=== PATIENT | female | born 1995 | race Caucasian/White ===

== ENCOUNTER 2020-05-22 14:53 | Emergency (ER) | payer OTHER, SELFPAY ==
[2020-05-22 15:44] VITALS: BP 121/82; PULSE 74; RESP 16; TEMP 36.9; O2SAT 98; BMI 30.1
[2020-05-22 16:16] LABS: Basophils % 0.5 %; Eosinophils # 0.1 10^3/uL (0.0-0.8); Eosinophils % 0.9 %; Hemoglobin 14.3 g/dL (11.5-15.3); Lymphocytes # 1.8 10^3/uL (0.8-4.8); Lymphocytes % 23.7 %; Mean Corpuscular HGB Conc 32.5 g/dL (30.0-36.0); Mean Corpuscular Hemoglobin 30.2 pg (28.0-34.0); Mean Corpuscular Volume 92.8 fL (81-99); Mean Platelet Volume 9.8 fL (7.4-10.4); Monocytes # 0.3 10^3/uL (0.2-0.9); Monocytes % 4.6 %; Neutrophils # 5.17 10^3/uL (1.8-7.7); Nucleated Red Blood Cells % 0 %; Platelet Count 302 10^3/cmm (130-400); Red Blood Count 4.74 10^6/uL (4.1-5.3); Red Cell Distribution Width 12.6 % (12.1-15.1); White Blood Count 7.4 10^3/uL (4.0-10.0)
--- NOTE | 2020-05-22 16:26 | USR_ITS ---
PROCEDURE INFORMATION: Exam: US Abdomen, Limited; Right Upper Quadrant Exam date and time: 05/22/2020 4:33 PM Age: 24 years old Clinical indication: Abdominal pain; Acute; Patient HX: 2 weeks post ; Additional info: Pain, n/v TECHNIQUE: Imaging protocol: US abdomen. Real time ultrasound with image documentation. Limited exam focused on the right upper quadrant. COMPARISON: No relevant prior studies available. FINDINGS: Liver: Normal. No masses. Gallbladder: Enlarged hydropic gallbladder. Gallbladder measures approximately 10 cm in length. No few small gallstones within the gallbladder pherigian cap. No visible gallbladder wall thickening or pericholecystic fluid. Common bile duct: Normal. No stones. No dilation. Common bile duct maximum diameter 7 mm. Pancreas: Visualized pancreas is unremarkable. Right kidney: Normal. No mass. No hydronephrosis. Right renal dimensions 11 cm x 4.8 cm x 5 cm. Aorta: The abdominal aorta were visualized is nonaneurysmal. Portal venous: Antegrade portal venous flow. Inferior vena cava: Patent inferior vena cava. US/US gall bladder [id number] IMPRESSION: Hydropic enlarged gallbladder containing a few small gallstones.
[2020-05-22 16:35] LABS: HCG, Serum Qual Negative (Negative)
[2020-05-22 16:38] LABS: Alanine Aminotransferase 153 U/L (0-33); Albumin Level 4.3 g/dL (3.5-5.2); Alkaline Phosphatase 537 IU/L (35-105); Anion Gap 17.1 (5-19); Aspartate Amino Transferase 88 U/L (0-32); Blood Urea Nitrogen 12 mg/dL (6-20); Calcium 9.6 mg/dL (8.5-10.5); Carbon Dioxide 23 mmol/L (22-29); Chloride 105 mmol/L (98-107); Globulin 3.4 g/dL (1.3-4.6); Glomerular Filtration Rate 76.9 mL/min (90-130); Glucose 81 mg/dL (65-115); Lipase 40 U/L (13-60); Osmolality Calculated 287 mOsm/kg (285-295); Potassium 4.1 mmol/L (3.5-5.1); Sodium 141 mmol/L (136-145); Total Bilirubin 1.3 mg/dL (0.15-1.2); Total Protein 7.7 g/dL (6.6-8.7)
[2020-05-22 17:17] VITALS: RESP 18; O2SAT 98
[2020-05-22] MEDS: morphine 4 mg/mL SDV 1 mL IVP ×2 (17:17→19:30)
[2020-05-22] MEDS: ondansetron 2 mg/ML SDV 2 mL 4 MG IVP (17:19)
--- NOTE | 2020-05-22 17:20 | MRR_ITS ---
PROCEDURE INFORMATION: Exam: MR Abdomen Without Contrast Exam date and time: 05/22/2020 5:21 PM Age: 24 years old Clinical indication: Abdominal pain; Other: Gall bladder pain; Additional info: Ruq pain, concern for cbd stone TECHNIQUE: Imaging protocol: MR of the abdomen without contrast. COMPARISON: US gall bladder [id number] 05/22/2020 4:44 PM FINDINGS: Liver: The liver is normal. Gallbladder and bile ducts: MRCP demonstrates the common bile duct to be mildly dilated, 8 mm. There is a filling defect measuring 3 mm within the distal common bile duct consistent with choledochal calculus. Pancreas: The pancreas is normal. Pancreatic duct is normal. Spleen: The spleen is normal. Adrenals: The adrenals are normal. Kidneys and ureters: The kidneys are normal.No hydronephrosis. Stomach and bowel: Unremarkable Intraperitoneal space: No free fluid. Arteries: No abdominal aortic aneurysm. Bladder: The bladder is moderately distended. There is a Phrygian cap which contains multiple small gallstones. No wall thickening. No pericholecystic fluid. Bones/joints: Unremarkable. Soft tissues: Unremarkable. MR/MR MRCP [id number] IMPRESSION: 1. Cholelithiasis. 2. The common bile duct is mildly dilated, 8 mm. Within the distal common bile duct there is a 3 mm choledochal calculus.
--- NOTE | 2020-05-22 17:21 | ED_ITS ---
HPI - Abdominal Pain General: Chief Complaint: Abdominal Pain Stated Complaint: ABD pain/ known gall stones Time Seen by Provider: 05/22/20 16:41 History of Present Illness: HPI narrative: This patient is a 24-year-old female who presents with right upper quadrant pain. She presents after having had symptoms for several months. She delivered a baby 2 weeks ago and has had worsening symptoms since then. 24 hours ago she started having severe right upper quadrant pain that has not resolved. She is not able to tolerate food or fluid including water. She denies fever. She had an ultrasound several months ago that showed stones in the gallbladder. Her doctor was trying to delay treatment of those until after her delivery. She is breast-feeding. She is otherwise healthy. MD elicited complaint: abdominal pain Pertinent past history: none Onset (ago): month(s) (Has been going on for a few months intermittently but constant since 6 PM last night) Location: Epigastric and RUQ Severity: moderate Radiation: none Exacerbating factors: eating and movement Relieving factors: nothing Associated Symptoms: Reports anorexia, chills, nausea and vomiting Review of Systems General: Reports: 10 or more systems reviewed and unremarkable except in HPI and below Narrative: Breast-feeding, 2 weeks Const: Reports: chills Eyes: Denies: change in vision ENMT: Denies: odynophagia Card: Denies: chest pain or swelling of feet/ankles Resp: Denies: dyspnea, productive cough or non-productive cough GI: Reports: abdominal pain, nausea and vomiting : Denies: flank pain or difficulty voiding Musc: Denies: neck pain or back pain Skin/Breast: Denies: rash Neuro: Denies: headache(s), numbness in extremities or weakness in extremities Lee/Lymph: Denies: easy bruising or easy bleeding PFS ED PFSH: Social History Smoking and tobacco status: never smoked Alcohol intake: never Substance/Drug Use: never Physical Exam Const: COMMON NORMALS: no acute distress, patient oriented x3, no limitations and alert GENERAL APPEARANCE: cooperative and comfortable HENMT: HEAD & SCALP: normal to inspection FACE & SINUS: normal facial exam Eye: GENERAL EYE: appearance normal, both eyes and all related structures Neck/C-Spine: COMMON NORMALS: supple, no meningeal signs and no JVD Chest: COMMONS NORMALS: normal inspection of the chest Resp: COMMON NORMALS: normal respiratory effort, No use of accessory muscles and clear to auscultation bilaterally AUSCULTATION: clear to auscultation bilaterally Cardio: COMMON NORMALS: no JVD, regular rate, regular rhythm and No murmurs present (Cardio) RATE: regular rate RHYTHM: regular rhythm GI: PALPATION: Yes Tenderness to palpation present (GI) (Severe) Details: RUQ and other (Epigastric) Back/Pelvis: COMMON NORMALS: thoracic and lumbar spine normal to inspection Extremity: COMMON NORMALS: normal to inspection Neuro: COMMON NORMALS: patient oriented x3, moves all extremities, no focal motor deficits and no sensory deficits noted SENSORIUM/ORIENTATION: Yes alert MENINGEAL SIGNS: Yes no meningeal signs Psych: COMMON NORMALS: mental status grossly normal, cooperative and normal affect Skin: COMMON NORMALS: no rashes or lesions noted and turgor normal GENERAL SKIN EXAM: no rashes or lesions noted and turgor normal Course ED course: Ultrasound with gallstones. No wall thickening or pericholecystic fluid. Elevated alk phos and slightly elevated total bilirubin. Concerning for possible common bile duct stone. Discussed with Dr. Sandoval. Recommended MRCP which did show a 3 mm common bile duct stone. Attempting to arrange for transfer to [facility] for ERCP. patient was accepted by the nurse practitioner for Dr. Cinthia Gabriel. We are awaiting a room assignment and transportation. Vital Signs: Vital signs: Vital Signs Temperature 98.4 F 05/22/20 15:44 Pulse Rate 82 05/22/20 23:20 Respiratory Rate 18 05/22/20 23:20 Blood Pressure 121/76 05/22/20 23:20 Pulse Oximetry 98 05/22/20 23:20 MDM - Abdominal Pain MDM Narrative: Medical decision making narrative: Cholelithiasis, cholecystitis, choledocholithiasis. Lab Data: Labs: Lab Results 05/22/20 05/22/20 05/22/20 Range/Units 16:10 16:10 16:10 WBC 7.4 (4.0-10.0) 10^3/ uL RBC 4.74 (4.1-5.3) 10^6/u L Hgb 14.3 (11.5-15.3) g/dL Hct 44.0 (37.0-47.0) % MCV 92.8 (81-99) fL MCH 30.2 (28.0-34.0) pg MCHC 32.5 (30.0-36.0) g/dL RDW 12.6 (12.1-15.1) % Plt Count 302 (130-400) 10^3/c mm MPV 9.8 (7.4-10.4) fL Neut % (Auto) 70.0 % Lymph % (Auto) 23.7 % [place] % (Auto) 4.6 % Eos % (Auto) 0.9 % Baso % (Auto) 0.5 % Neut # (Auto) 5.17 (1.8-7.7) 10^3/u L Lymph # (Auto) 1.8 (0.8-4.8) 10^3/u L [place] # (Auto) 0.3 (0.2-0.9) 10^3/u L Eos # (Auto) 0.1 (0.0-0.8) 10^3/u L Baso # (Auto) 0.0 (0.0-0.1) 10^3/u L Nucleated RBC % (a uto) 0 % Nucleated RBCs # 0.0 /100WBC Sodium 141 (136-145) mmol/L Potassium 4.1 (3.5-5.1) mmol/L Chloride 105 (98-107) mmol/L Carbon Dioxide 23 (22-29) mmol/L Anion Gap 17.1 (5-19) BUN 12 (6-20) mg/dL Creatinine 0.9 (0.5-0.9) mg/dL GFR Calculation 76.9 L (90-130) mL/min Glucose 81 (65-115) mg/dL Calculated Osmolal ity 287 (285-295) mOsm/k g Lactic Acid (0.5-2.2) mmol/L Calcium 9.6 (8.5-10.5) mg/dL Total Bilirubin 1.3 H (0.15-1.2) mg/dL AST 88 H (0-32) U/L ALT 153 H (0-33) U/L Alkaline Phosphata se 537 H (35-105) IU/L Total Protein 7.7 (6.6-8.7) g/dL Albumin 4.3 (3.5-5.2) g/dL Globulin 3.4 (1.3-4.6) g/dL Lipase 40 (13-60) U/L HCG, Qual Negative (Negative) Urine Color (Yellow) Urine Appearance (CLEAR) Urine pH (5-7) Ur Specific Gravit y (1.005-1.030) Urine Protein (Negative) Urine Glucose (UA) (Normal) Urine Ketones (Negative) Urine Blood (Negative) Urine Nitrate (Negative) Urine Bilirubin (NEGATIVE) Urine Urobilinogen (Negative) mg/dL Ur Leukocyte Jocelyne ase (Negative) Urine RBC (0-2) /hpf Urine WBC (0-5) /hpf Ur Squamous Epith Cells (0-5) Amorphous Sediment Urine Bacteria (NONE) Urine Mucus 05/22/20 05/22/20 Range/Units 17:27 17:30 WBC (4.0-10.0) 10^3/ uL RBC (4.1-5.3) 10^6/u L Hgb (11.5-15.3) g/dL Hct (37.0-47.0) % MCV (81-99) fL MCH (28.0-34.0) pg MCHC (30.0-36.0) g/dL RDW (12.1-15.1) % Plt Count (130-400) 10^3/c mm MPV (7.4-10.4) fL Neut % (Auto) % Lymph % (Auto) % [place] % (Auto) % Eos % (Auto) % Baso % (Auto) % Neut # (Auto) (1.8-7.7) 10^3/u L Lymph # (Auto) (0.8-4.8) 10^3/u L [place] # (Auto) (0.2-0.9) 10^3/u L Eos # (Auto) (0.0-0.8) 10^3/u L Baso # (Auto) (0.0-0.1) 10^3/u L Nucleated RBC % (a uto) % Nucleated RBCs # /100WBC Sodium (136-145) mmol/L Potassium (3.5-5.1) mmol/L Chloride (98-107) mmol/L Carbon Dioxide (22-29) mmol/L Anion Gap (5-19) BUN (6-20) mg/dL Creatinine (0.5-0.9) mg/dL GFR Calculation (90-130) mL/min Glucose (65-115) mg/dL Calculated Osmolal ity (285-295) mOsm/k g Lactic Acid 1.0 (0.5-2.2) mmol/L Calcium (8.5-10.5) mg/dL Total Bilirubin (0.15-1.2) mg/dL AST (0-32) U/L ALT (0-33) U/L Alkaline Phosphata se (35-105) IU/L Total Protein (6.6-8.7) g/dL Albumin (3.5-5.2) g/dL Globulin (1.3-4.6) g/dL Lipase (13-60) U/L HCG, Qual (Negative) Urine Color Dark yellow (Yellow) Urine Appearance Clear (CLEAR) Urine pH 5 (5-7) Ur Specific Gravit y 1.025 (1.005-1.030) Urine Protein Neg (Negative) Urine Glucose (UA) Norm (Normal) Urine Ketones 2+ H (Negative) Urine Blood 2+ H (Negative) Urine Nitrate Negative (Negative) Urine Bilirubin 1+ H (NEGATIVE) Urine Urobilinogen 1 H (Negative) mg/dL Ur Leukocyte Jocelyne ase Trace H (Negative) Urine RBC 0-4 H (0-2) /hpf Urine WBC 5-10 H (0-5) /hpf Ur Squamous Epith Cells 0-4 H (0-5) Amorphous Sediment Not Reportable Urine Bacteria 1+ H (NONE) Urine Mucus 3+ Discharge Plan Discharge Patient Disposition: Xfer Short-Term Hosp Clinical Impression: Choledocholithiasis Condition: Stable Referrals: Ro Lara, [facility] [Primary Care Provider] - Coding Level of Care Code ED Rustic Terrazzo Setter for Chg Fwd Exam Comprehensive
[2020-05-22] MEDS: sodium chloride 0.9% 1,000 ML 999 ML IV ×2 (18:20→18:22)
[2020-05-22 18:41] LABS: Add Urine Microscopic? YES; Bilirubin Urine 1+ (NEGATIVE); Blood Urine 2+ (Negative); Glucose Urine UA Norm (Normal); Ketones Urine 2+ (Negative); Leukocyte Esterase Urine Trace (Negative); Nitrate Urine Negative (Negative); Protein Urine Neg (Negative); Specific Gravity, Urine 1.025 (1.005-1.030); Urine Appearance Clear (CLEAR); Urine Color Dark Yellow (Yellow); Urobilinogen Urine 1 mg/dL (Negative); pH Urine 5 (5-7)
[2020-05-22 18:42] LABS: Bacteria Urine 1+; Mucus Urine 3+; RBC Urine 0-4 /hpf (0-2); Squamous Epithelial Cell Urine 0-4 (0-5)
[2020-05-22 18:43] LABS: Add Urine Culture? Yes
[2020-05-22 19:30] VITALS: RESP 17; O2SAT 98
[2020-05-22 23:20] VITALS: BP 121/76; PULSE 82; RESP 18; O2SAT 98
== END 2020-05-23 00:46 | disposition short-term general hospital (02) ==
PROVIDERS: Physician Assistant; Emergency Provider Emergency Medicine; PCP Nurse Practitioner Family
DX: K80.50 Calculus of bile duct without cholangitis or cholecystitis without obstruction (principal)
CPT/HCPCS: 12345; 36415; 74181; 76705; 80053; 81001; 83605; 83690; 84703; 85025; 87040; 87077; 87086; 87186; 96361; 96374; 96375; 99282; 99283; J2270; J2405; J7030

== ENCOUNTER 2020-05-27 22:32 | Emergency (ER) | payer OTHER, SELFPAY ==
[2020-05-27 22:47] VITALS: BP 107/74; PULSE 80; RESP 28; TEMP 36.5; O2SAT 99; BMI 30.1
--- NOTE | 2020-05-27 22:57 | CTR_ITS ---
PROCEDURE INFORMATION: Exam: CT Abdomen And Pelvis With Contrast Exam date and time: 05/27/2020 11:18 PM Age: 24 years old Clinical indication: Abdominal pain; Generalized; Prior surgery; Surgery date: 3-7 days post-operative; Surgery type: Cholecystectomy; Patient HX: 3 weeks post ; Additional info: Abd pain TECHNIQUE: Imaging protocol: Computed tomography of the abdomen and pelvis with intravenous contrast. Radiation optimization: All CT scans at this facility use at least one of these dose optimization techniques: automated exposure control; mA and/or kV adjustment per patient size (includes targeted exams where dose is matched to clinical indication); or iterative reconstruction. Contrast material: OMNI 300; Contrast volume: 95 ml; Contrast route: INTRAVENOUS (IV); COMPARISON: MR MRCP [id number] 05/22/2020 6:23 PM RADIATION DOSE METRICS: Total DLP (mGy-cm): 828.87 FINDINGS: Liver: Normal. No mass. Gallbladder and bile ducts: 4.7 x 1.1 cm air-containing fluid collection in the gallbladder fossa without ring-enhancement. Cholecystectomy. Biliary stent. No biliary ductal dilatation. Pancreas: Normal. No ductal dilation. Spleen: No splenomegaly. Adrenals: Normal. No mass. Kidneys and ureters: Normal. No hydronephrosis. Stomach and bowel: No obstruction. No wall thickening. Appendix: Normal appendix. Intraperitoneal space: 6.5 x 3.1 cm loculated fluid collection without ring enhancement in the cul-de-sac. Vasculature: No abdominal aortic aneurysm. Lymph nodes: No enlarged lymph nodes. Bladder: Unremarkable as visualized. Reproductive: Unremarkable as visualized. Bones/joints: Unremarkable. No acute fracture. Soft tissues: Minimal subcutaneous emphysema at the umbilicus with mild fat stranding, compatible with recent surgery. CT/CT abdomen pelvis w con* [id number] IMPRESSION: 1. 4.7 x 1.1 cm air-containing fluid collection in the gallbladder fossa without ring-enhancement. Developing abscess is possible. 2. 6.5 x 3.1 cm loculated fluid collection without ring enhancement in the cul-de-sac. Developing abscess is possible. Radiation Dose CTDIVOL = (mGy): DLP = 828.87 (mGy-cm)
--- NOTE | 2020-05-27 23:06 | ED_ITS ---
HPI - Abdominal Pain General: Chief Complaint: Abdominal Pain Stated Complaint: severe abd pain and vomiting post surg 05/23 Time Seen by Provider: 05/27/20 22:57 Source: patient Mode of arrival: ambulatory Limitations: no limitations History of Present Illness: HPI narrative: 24-year-old female who had an ERCP along with cholecystectomy last Tuesday. She also had a stent placed in her common bile duct. Patient was discharged Tuesday and states she has been doing well started having diffuse abdominal pain today that radiates to her back. States pain is sharp in nature and rates it a 5 out of 10. She denies any worsening or improving factors. She denies any fevers. MD elicited complaint: abdominal pain Associated Symptoms: Denies chills, dysuria and fever(s) Review of Systems Const: Denies: fever(s), chills, body aches or change in appetite Eyes: Denies: blurry vision or eye discomfort ENMT: Denies: throat pain or dental pain Card: Denies: chest pain Resp: Denies: dyspnea GI: Reports: abdominal pain : Denies: dysuria Musc: Denies: neck pain or back pain Skin/Breast: Denies: rash Neuro: Denies: headache(s) Psych: Denies: depression Lee/Lymph: Denies: easy bruising All/Imm: Denies: urticaria PFSH ED PFSH: Social History Smoking and tobacco status: never smoked Alcohol intake: never Physical Exam Const: COMMON NORMALS: no acute distress, patient oriented x3 and healthy appearing HENMT: COMMON NORMALS: normocephalic and atraumatic HEAD & SCALP: normocephalic and atraumatic Eye: COMMON NORMALS: Equal, round and reactive pupils present and EOMs intact bilaterally PUPIL: Yes Equal, round and reactive pupils present Neck/C-Spine: COMMON NORMALS: full ROM and supple Chest: COMMONS NORMALS: normal inspection of the chest and normal palpation of entire chest wall Resp: COMMON NORMALS: normal respiratory effort, No retractions, No use of accessory muscles and clear to auscultation bilaterally AUSCULTATION: clear to auscultation bilaterally Cardio: COMMON NORMALS: regular rate, regular rhythm and No murmurs present (Cardio) RATE: regular rate RHYTHM: regular rhythm GI: COMMON NORMALS: Normal to inspection, nondistended, normoactive bowel sounds present, Soft to palpation and no masses PALPATION: Yes Soft to palpation OTHER: Incisions are clean dry and intact. Diffuse tenderness Extremity: COMMON NORMALS: normal to inspection and full ROM Neuro: COMMON NORMALS: patient oriented x3, moves all extremities and no focal motor deficits Psych: COMMON NORMALS: mental status grossly normal, Normal thought process present and cooperative THOUGHT PROCESS: Normal thought process present Skin: COMMON NORMALS: no rashes or lesions noted and no wounds GENERAL SKIN EXAM: no rashes or lesions noted Course Vital Signs: Vital signs: Vital Signs Temperature 97.7 F 05/27/20 22:47 Pulse Rate 74 05/28/20 01:59 Respiratory Rate 18 05/28/20 01:59 Blood Pressure 107/72 05/28/20 01:59 Pulse Oximetry 98 05/28/20 01:59 MDM - Abdominal Pain MDM Narrative: Medical decision making narrative: Patient presents here with a bdominal pain. Patient is afebrile and white count is normal. Her pain is since resolved and abdominal exam here is benign. I spoke to surgeon on-call at [facility]. I went over CT scan with him. He states that her white count is normal and she is afebrile he had like her to see Dr. Sloan her surgeon today in clinic. We will start her on Augmentin. Patient is to call her surgeon to see him today. She is to return to the ER if worsening. She understands and agrees to this plan. Lab Data: Labs: Lab Results 05/27/20 05/27/20 05/27/20 Range/Units 23:11 23:11 23:11 WBC 5.8 (4.0-10.0) 10^3/ uL RBC 4.39 (4.1-5.3) 10^6/u L Hgb 13.3 (11.5-15.3) g/dL Hct 39.3 (37.0-47.0) % MCV 89.5 (81-99) fL MCH 30.3 (28.0-34.0) pg MCHC 33.8 (30.0-36.0) g/dL RDW 12.1 (12.1-15.1) % Plt Count 265 (130-400) 10^3/c mm MPV 10.1 (7.4-10.4) fL Neut % (Auto) 55.4 % Lymph % (Auto) 33.6 % [place] % (Auto) 7.5 % Eos % (Auto) 2.7 % Baso % (Auto) 0.5 % Neut # (Auto) 3.22 (1.8-7.7) 10^3/u L Lymph # (Auto) 2.0 (0.8-4.8) 10^3/u L [place] # (Auto) 0.4 (0.2-0.9) 10^3/u L Eos # (Auto) 0.2 (0.0-0.8) 10^3/u L Baso # (Auto) 0.0 (0.0-0.1) 10^3/u L Nucleated RBC % (a uto) 0 % Nucleated RBCs # 0.0 /100WBC Sodium 138 (136-145) mmol/L Potassium 3.7 (3.5-5.1) mmol/L Chloride 104 (98-107) mmol/L Carbon Dioxide 20 L (22-29) mmol/L Anion Gap 17.7 (5-19) BUN 12 (6-20) mg/dL Creatinine 0.7 (0.5-0.9) mg/dL GFR Calculation 102.8 (90-130) mL/min Glucose 94 (65-115) mg/dL Calculated Osmolal ity 282 L (285-295) mOsm/k g Calcium 9.4 (8.5-10.5) mg/dL Total Bilirubin 0.5 (0.15-1.2) mg/dL AST 18 (0-32) U/L ALT 31 (0-33) U/L Alkaline Phosphata se 274 H (35-105) IU/L Total Protein 7.3 (6.6-8.7) g/dL Albumin 4.0 (3.5-5.2) g/dL Globulin 3.3 (1.3-4.6) g/dL Lipase 26 (13-60) U/L HCG, Qual Negative (Negative) Urine Color (Yellow) Urine Appearance (CLEAR) Urine pH (5-7) Ur Specific Gravit y (1.005-1.030) Urine Protein (Negative) Urine Glucose (UA) (Normal) Urine Ketones (Negative) Urine Blood (Negative) Urine Nitrate (Negative) Urine Bilirubin (NEGATIVE) Urine Urobilinogen (Negative) mg/dL Ur Leukocyte Jocelyne ase (Negative) Urine RBC (0-2) /hpf Urine WBC (0-5) /hpf Ur Squamous Epith Cells (0-5) Amorphous Sediment Urine Bacteria (NONE) Urine Mucus 05/27/20 Range/Units 23:33 WBC (4.0-10.0) 10^3/ uL RBC (4.1-5.3) 10^6/u L Hgb (11.5-15.3) g/dL Hct (37.0-47.0) % MCV (81-99) fL MCH (28.0-34.0) pg MCHC (30.0-36.0) g/dL RDW (12.1-15.1) % Plt Count (130-400) 10^3/c mm MPV (7.4-10.4) fL Neut % (Auto) % Lymph % (Auto) % [place] % (Auto) % Eos % (Auto) % Baso % (Auto) % Neut # (Auto) (1.8-7.7) 10^3/u L Lymph # (Auto) (0.8-4.8) 10^3/u L [place] # (Auto) (0.2-0.9) 10^3/u L Eos # (Auto) (0.0-0.8) 10^3/u L Baso # (Auto) (0.0-0.1) 10^3/u L Nucleated RBC % (a uto) % Nucleated RBCs # /100WBC Sodium (136-145) mmol/L Potassium (3.5-5.1) mmol/L Chloride (98-107) mmol/L Carbon Dioxide (22-29) mmol/L Anion Gap (5-19) BUN (6-20) mg/dL Creatinine (0.5-0.9) mg/dL GFR Calculation (90-130) mL/min Glucose (65-115) mg/dL Calculated Osmolal ity (285-295) mOsm/k g Calcium (8.5-10.5) mg/dL Total Bilirubin (0.15-1.2) mg/dL AST (0-32) U/L ALT (0-33) U/L Alkaline Phosphata se (35-105) IU/L Total Protein (6.6-8.7) g/dL Albumin (3.5-5.2) g/dL Globulin (1.3-4.6) g/dL Lipase (13-60) U/L HCG, Qual (Negative) Urine Color Yellow (Yellow) Urine Appearance Clear (CLEAR) Urine pH 5 (5-7) Ur Specific Gravit y 1.025 (1.005-1.030) Urine Protein Neg (Negative) Urine Glucose (UA) Norm (Normal) Urine Ketones 2+ H (Negative) Urine Blood 2+ H (Negative) Urine Nitrate Negative (Negative) Urine Bilirubin Neg (NEGATIVE) Urine Urobilinogen Norm (Negative) mg/dL Ur Leukocyte Jocelyne ase Trace H (Negative) Urine RBC 0-4 H (0-2) /hpf Urine WBC 0-4 H (0-5) /hpf Ur Squamous Epith Cells 0-4 H (0-5) Amorphous Sediment Not Reportable Urine Bacteria 1+ H (NONE) Urine Mucus 2+ Imaging Data ^: CT Abd/Pel: Radiologist's impression: [place] [address] CT Scan Report Signed Patient: Mary Hardin Unit #: [id number] : 1995 Age/Sex: 24 / F ADM Date: 05/27/20 Loc: ER Room/Bed: Attending Dr: Ordering Provider/Ordering MD: Kendal Psiano MD Date of Service: 05/27/20 Procedure(s): CT abdomen pelvis w con* [id number] Accession Number(s): [id number] Report Number: [id number] PROCEDURE INFORMATION: Exam: CT Abdomen And Pelvis With Contrast Exam date and time: 05/27/2020 11:18 PM Age: 24 years old Clinical indication: Abdominal pain; Generalized; Prior surgery; Surgery date: 3-7 days post-operative; Surgery type: Cholecystectomy; Patient HX: 3 weeks post ; Additional info: Abd pain TECHNIQUE: Imaging protocol: Computed tomography of the abdomen and pelvis with intravenous contrast. Radiation optimization: All CT scans at this facility use at least one of these dose optimization techniques: automated exposure control; mA and/or kV adjustment per patient size (includes targeted exams where dose is matched to clinical indication); or iterative reconstruction. Contrast material: OMNI 300; Contrast volume: 95 ml; Contrast route: INTRAVENOUS (IV); COMPARISON: MR MRCP [id number] 05/22/2020 6:23 PM RADIATION DOSE METRICS: Total DLP (mGy-cm): 828.87 FINDINGS: Liver: Normal. No mass. Gallbladder and bile ducts: 4.7 x 1.1 cm air-containing fluid collection in the gallbladder fossa without ring-enhancement. Cholecystectomy. Biliary stent. No biliary ductal dilatation. Pancreas: Normal. No ductal dilation. Spleen: No splenomegaly. Adrenals: Normal. No mass. Kidneys and ureters: Normal. No hydronephrosis. Stomach and bowel: No obstruction. No wall thickening. Appendix: Normal appendix. Intraperitoneal space: 6.5 x 3.1 cm loculated fluid collection without ring enhancement in the cul-de-sac. Vasculature: No abdominal aortic aneurysm. Lymph nodes: No enlarged lymph nodes. Bladder: Unremarkable as visualized. Reproductive: Unremarkable as visualized. Bones/joints: Unremarkable. No acute fracture. Soft tissues: Minimal subcutaneous emphysema at the umbilicus with mild fat stranding, compatible with recent surgery. CT/CT abdomen pelvis w con* [id number] IMPRESSION: 1. 4.7 x 1.1 cm air-containing fluid collection in the gallbladder fossa without ring-enhancement. Developing abscess is possible. 2. 6.5 x 3.1 cm loculated fluid collection without ring enhancement in the cul-de-sac. Developing abscess is possible. Discharge Plan Discharge Patient Disposition: Home Clinical Impression: Abdominal pain Qualifiers: Abdominal location: generalized Qualified Code(s): R10.84 - Generalized abdominal pain Condition: Stable Prescriptions: New Augmentin 875-125 mg tablet 1 tab PO BID Qty: 14 RF: 0 ondansetron 4 mg tablet,disintegrating 4 mg PO Q6H PRN (Reason: nausea and vomiting) Qty: 14 RF: 0 No Action ondansetron HCl 8 mg tablet 8 mg PO Q8H PRN (Reason: n/v) RF: 0 28-800 mg-mcg Tablet 1 tab PO DAILY RF: 0 Discharge Orders: Discharge Order (Routine); Ordered 05/28/20 Ordered By: Kendal Pisano Referrals: Lara,Or M, [facility] [Primary Care Provider] - Discharge Diet: Advance as tolerated Discharge Activity: Resume usual activity Patient Instructions: Abdominal Pain (ED) Activity Restrictions/Additional Instructions: follow up with your surgeon today Coding Level of Care Code ED Asparagus Buncher for Chg Fwd Exam Comprehensive
[2020-05-27 23:12] VITALS: RESP 20; O2SAT 98
[2020-05-27] MEDS: ondansetron 2 mg/ML SDV 2 mL 4 MG IVP (23:12)
[2020-05-27] MEDS: sodium chloride 0.9% 1,000 ML 999 ML IV (23:12)
[2020-05-27] MEDS: HYDROmorphone 1 mg/mL INJ 1 mL IVP (23:12)
[2020-05-27 23:27] LABS: Basophils % 0.5 %; Eosinophils # 0.2 10^3/uL (0.0-0.8); Eosinophils % 2.7 %; Hematocrit 39.3 % (37.0-47.0); Hemoglobin 13.3 g/dL (11.5-15.3); Lymphocytes % 33.6 %; Mean Corpuscular HGB Conc 33.8 g/dL (30.0-36.0); Mean Corpuscular Hemoglobin 30.3 pg (28.0-34.0); Mean Corpuscular Volume 89.5 fL (81-99); Mean Platelet Volume 10.1 fL (7.4-10.4); Monocytes # 0.4 10^3/uL (0.2-0.9); Monocytes % 7.5 %; Neutrophils # 3.22 10^3/uL (1.8-7.7); Neutrophils % 55.4 %; Nucleated Red Blood Cells % 0 %; Platelet Count 265 10^3/cmm (130-400); Red Blood Count 4.39 10^6/uL (4.1-5.3); Red Cell Distribution Width 12.1 % (12.1-15.1); White Blood Count 5.8 10^3/uL (4.0-10.0)
[2020-05-27 23:42] LABS: HCG, Serum Qual Negative (Negative)
[2020-05-27 23:45] LABS: Alanine Aminotransferase 31 U/L (0-33); Alkaline Phosphatase 274 IU/L (35-105); Anion Gap 17.7 (5-19); Aspartate Amino Transferase 18 U/L (0-32); Blood Urea Nitrogen 12 mg/dL (6-20); Calcium 9.4 mg/dL (8.5-10.5); Carbon Dioxide 20 mmol/L (22-29); Chloride 104 mmol/L (98-107); Globulin 3.3 g/dL (1.3-4.6); Glomerular Filtration Rate 102.8 mL/min (90-130); Glucose 94 mg/dL (65-115); Lipase 26 U/L (13-60); Osmolality Calculated 282 mOsm/kg (285-295); Potassium 3.7 mmol/L (3.5-5.1); Sodium 138 mmol/L (136-145); Total Bilirubin 0.5 mg/dL (0.15-1.2); Total Protein 7.3 g/dL (6.6-8.7)
[2020-05-27 23:55] LABS: Add Urine Microscopic? YES; Bacteria Urine 1+; Bilirubin Urine Neg (NEGATIVE); Blood Urine 2+ (Negative); Glucose Urine UA Norm (Normal); Ketones Urine 2+ (Negative); Leukocyte Esterase Urine Trace (Negative); Mucus Urine 2+; Nitrate Urine Negative (Negative); Protein Urine Neg (Negative); RBC Urine 0-4 /hpf (0-2); Specific Gravity, Urine 1.025 (1.005-1.030); Squamous Epithelial Cell Urine 0-4 (0-5); Urine Appearance Clear (CLEAR); Urine Color Yellow (Yellow); Urobilinogen Urine Norm (Negative); WBC Urine 0-4 /hpf (0-5); pH Urine 5 (5-7)
[2020-05-28 00:11] VITALS: BP 121/71; PULSE 78; RESP 18; O2SAT 100
[2020-05-28] MEDS: diphenhydrAMINE 50 mg/mL SDV 1mL IVP (00:34)
[2020-05-28] MEDS: metoclopramide 5 mg/mL SDV 2 mL 10 MG IVP (00:34)
[2020-05-28] MEDS: iohexol 300 mg/mL 100 mL Btl IV (00:45)
[2020-05-28 01:59] VITALS: BP 107/72; PULSE 74; RESP 18; O2SAT 98
--- NOTE | 2020-05-28 15:23 | DCPLANNER ---
Patient called case preparer and liner stating that she was to follow up with a surgeon in [place], but that the clinic needed information from patients ED visit. manager intelligence faxed patients information to the [facility].
== END 2020-05-28 03:10 | disposition home or self-care (01) ==
PROVIDERS: Emergency Provider Emergency Medicine; PCP Nurse Practitioner Family
DX: R10.84 Generalized abdominal pain (principal)
CPT/HCPCS: 12345; 74177; 80053; 81001; 83690; 84703; 85025; 96361; 96374; 96375; 99283; J1170; J1200; J2405; J2765; J7030; Q9967